=== PATIENT | female | born 1950 | race Caucasian/White ===

== ENCOUNTER → 2017-04-27 | Outpatient (CLI) | payer MEDICARE, OTHER ==
[2016-04-08 11:00] VITALS: BP 153/90
[~2017-04-27] MED LIST: AMLO10TA2 PO; AMLO1CAP2 PO; ASPI-482 PO; ATOR40TA PO; CETI10TA22 PO; CINN500C PO; CLON0.2T PO; CRAN500C5 PO; ESOM40CA PO; FLUT16SP NS; FLUT1DIS3 IH; FURO20TA3 PO; LOSA100T2 PO; METF500T9 PO; METO100T11 PO; PRED20TA PO; VENTOLIN HFA18 GM IH
[2017-04-27 14:55] LABS: ALBUMIN 3.5 g/dL (3.4-5.0); CALCIUM 9.2 mg/dL (8.5-10.1); CREATININE 0.8 mg/dL (0.6-1.0); GFR 71.3; POTASSIUM 4.1 mmol/L (3.5-5.1)
== END | disposition home or self-care (01) ==
LOC: SURGPAT 13:26
PROVIDERS: ATTEND Surgery
DX: Z01.812 Encounter for preprocedural laboratory examination (principal)
CPT/HCPCS: 36415; 80048; 82040

== ENCOUNTER 2017-05-01 05:47 | Inpatient (IN) | payer MEDICARE, OTHER ==
[~2017-05-01] VITALS: Ht 157.5 cm; Wt 108.9 kg
[2017-05-01] VITALS (7 sets, daily range): BP systolic 143–148; BP diastolic 82–94
[~2017-05-01 05:47] MED LIST changes: -CINN500C PO; +CINN500C2 PO
[2017-05-01] MEDS ORDERED: LIDOCAINE 1% 1 ML SYRINGE. ID PRN (07:00)
[2017-05-01] MEDS ORDERED: ONDANSETRON PF 4 MG/2 ML VIAL. IV PRN ×2 (07:00→09:45)
[2017-05-01] MEDS ORDERED: PROCHLORPERAZINE 10 MG/2 ML VIAL. IV PRN ×2 (07:00→08:15)
[2017-05-01] MEDS ORDERED: IV RINGERS,LACTATED 1000ML 1,000 ML IV SCH (07:00)
[2017-05-01] MEDS ORDERED: fentaNYL PF VIAL 100 MCG/2 ML VIAL IV PRN ×3 (07:00→09:45)
[2017-05-01] MEDS ORDERED: BUPIVAC MPF-EPI 0.5%-1:200000 30 ML VIAL. ONE (07:07)
[2017-05-01] MEDS ORDERED: BUPIVACAINE MPF 0.5% 30 ML VIAL. ONE (07:08)
[2017-05-01] MEDS ORDERED: ONDANSETRON PF 4 MG/2 ML VIAL. ONE (07:18)
[2017-05-01] MEDS ORDERED: LIDOCAINE 2% PF Vial for OR 5 ML VIAL. ONE (07:18)
[2017-05-01] MEDS ORDERED: DEXAMETHASONE SOD PHOS 20 MG/5 ML VIAL. ONE (07:18)
[2017-05-01] MEDS ORDERED: PROPOFOL 20 ML IV ONE (07:18)
[2017-05-01] MEDS ORDERED: ROCURONIUM 100 MG/10 ML VIAL. ONE (07:19)
[2017-05-01] MEDS ORDERED: fentaNYL PF VIAL 250 MCG/5 ML VIAL ONE (07:20)
--- NOTE | 2017-05-01 07:36 | PDOC1 ---
History and Physical Date of Admission Date of Admission DATE: 05/01/17 TIME: 07:24 Identification/Chief Complaint Chief Complaint umbilical hernia, incarcerated Problems: Source Source: Chart review, Patient History of Present Illness History of Present Illness Ms Ahmadi is an obese 66 yo diabetic with an incarcerated umbilical hernia. She is brought for repair Past Medical History Cardiovascular: HTN Pulmonary: Other (seasonal allergies) GI: Constipation Hepatobiliary: Other (hypercholesterolemia) Endocrine: Diabetes Past Surgical History Past Surgical History: Cholecystectomy, , Hernia Repair, Hysterectomy Family History Family History: Cancer Social History Smoke: No ALCOHOL: rare Current Medications Current Medications Current Medications Ondansetron HCl (Zofran) 4 mg PRN Q6HRS PRN IV NAUSEA/VOMITING; Start 05/01/17 at 07:00; Stop 05/02/17 at 06:59 Fentanyl Citrate (Fentanyl 2ml Vial) 25 mcg PRN Q5MIN PRN IV MILD PAIN; Start 05/01/17 at 07:00; Stop 05/02/17 at 06:59 Fentanyl Citrate (Fentanyl 2ml Vial) 50 mcg PRN Q5MIN PRN IV MODERATE PAIN; Start 05/01/17 at 07:00; Stop 05/02/17 at 06:59 Ringer's Solution 1,000 ml @ 30 mls/hr Q24H IV Last administered on 05/01/17t 07:00; Start 05/01/17 at 07:00; Stop 05/01/17 at 18:59 Lidocaine HCl 2 ml PRN 1X PRN ID PRIOR TO IV START; Start 05/01/17 at 07:00; Stop 05/02/17 at 06:59 Prochlorperazine Edisylate (Compazine) 5 mg PACU PRN PRN IV NAUSEA, MRX1; Start 05/01/17 at 07:00; Stop 05/02/17 at 06:59 Levofloxacin/ Dextrose 100 ml @ 100 mls/hr 1X PREOP PRN IV PRIOR TO PROCEDURE ; Start 05/01/17 at 06:00; Stop 05/01/17 at 18:00 Bupivacaine HCl/ Epinephrine Bitart (Sensorcain-Mpf Epi 0.5%-1:[id number]) 30 ml STK -MED ONCE .ROUTE ; Start 05/01/17 at 07:07; Stop 05/01/17 at 07:08; Status DC Bupivacaine HCl (Sensorcaine Mpf 0.5%) 30 ml STK-MED ONCE .ROUTE ; Start at 07:08; Stop 05/01/17 at 07:09; Status DC Dexamethasone Sodium Phosphate (Decadron) 20 mg STK-MED ONCE .ROUTE ; Start 05/01 at 07:18; Stop 05/01/17 at 07:19; Status DC Ondansetron HCl (Zofran) 4 mg STK-MED ONCE .ROUTE ; Start 05/01/17 at 07:18; Stop 05/01/17 at 07:19; Status DC Propofol 20 ml @ As Directed STK-MED ONCE IV ; Start 05/01/17 at 07:18; Stop 05/01 at 07:19; Status DC Lidocaine HCl (Lidocaine Pf 2% Vial) 5 ml STK-MED ONCE .ROUTE ; Start 05/01/17 at 07:18; Stop 05/01/17 at 07:19; Status DC Rocuronium [place] (Zemuron) 100 mg STK-MED ONCE .ROUTE ; Start 05/01/17 at 07:19 ; Stop 05/01/17 at 07:20; Status DC Fentanyl Citrate (Fentanyl 5ml Vial) 250 mcg STK-MED ONCE .ROUTE ; Start at 07:20; Stop 05/01/17 at 07:21; Status DC Active Scripts Active Amlodipine Besylate 10 Mg Tablet 10 Mg PO DAILY Reported Cinnamon (Cinnamon Bark) 500 Mg Capsule 500 Mg PO DAILY Cranberry 500 Mg Capsule 500 Mg PO DAILY Cozaar (Losartan Potassium) 100 Mg Tablet 100 Mg PO DAILY Advair 250-50 Diskus (Fluticasone/Salmeterol) 1 Each Disk.w.dev 1 Puff IH BID Clonidine Hcl 0.2 Mg Tablet 0.2 Mg PO DAILY Aspir 81 (Aspirin) 81 Mg Tablet.dr 81 Mg PO Nexium Capsule (Esomeprazole Magnesium) 40 Mg Capsule.dr 40 Mg PO DAILYAC Lipitor (Atorvastatin Calcium) 40 Mg Tablet 40 Mg PO DAILY Metoprolol Succinate ( Xl ) (Metoprolol Succinate) 100 Mg Tab.er.24h 100 Mg PO DAILY Metformin Hcl Er (Metformin Hcl) 500 Mg Tab.er.24h 500 Mg PO DAILYWBKFT Ventolin Hfa Inhaler (Albuterol Sulfate) 18 Gm Hfa.aer.ad 2 Puff IH Q4HRS PRN Fluticasone Propionate Nasal [place] (Fluticasone Propionate) 16 Gm [place].susp 2 [place] NS DAILY Zyrtec (Cetirizine Hcl) 10 Mg Tablet 10 Mg PO Furosemide 20 Mg Tablet 20 Mg PO DAILY PRN Allergies Allergies: Coded Allergies: Sulfa (Sulfonamide Antibiotics) (Verified Allergy, Severe, Anaphylaxis, 04/27/17) Penicillins (Verified Allergy, Intermediate, Hives, 04/27/17) diphenhydramine (Verified Allergy, Intermediate, Palpitations, 04/27/17) codeine (Verified Allergy, Mild, 04/27/17) ROS Respiratory: YES: Wheezing Gastrointestinal: Yes Abdominal Pain Physical Exam General: Alert, Oriented X3, Cooperative, No acute distress HEENT: Atraumatic Lungs: Other (occasional wheeze) Heart: RRR Abdomen: Soft, Other (obese, well healed low midline incisional scar, umbilical fullness that is mildly TTP and not reducible) Skin: No rashes Neuro: Normal speech Vitals Vitals Vital Signs Date Time Temp Pulse Resp B/P (MAP) Pulse Ox O2 Delivery O2 Flow Rate FiO2 05/01/17 06:44 98.4 84 18 178/80 94 Room Air 98.4 Labs Labs Laboratory Tests Test 05/01/17 07:06 Glucose (Fingerstick) 147 mg/dL (70-99) Laboratory Tests Test 05/01/17 07:06 Glucose (Fingerstick) 147 mg/dL (70-99) VTE Prophylaxis Ordered VTE Prophylaxis Devices: Yes VTE Pharmacological Prophylaxi: No Assessment/Plan Assessment/Plan incarcerated umbilical hernia HPT obesity Repair. Discussed risks including but not limited to bleeding, infection, recurrence at her pre op visit. She would like to proceed. BARB PULIDO MD May 01, 2017 07:36
[2017-05-01] MEDS ORDERED: GLYCOPYRROLATE 1 MG/5 ML VIAL. ONE (08:09)
[2017-05-01] MEDS ORDERED: NEOSTIGMINE METHYLSULFATE 5 MG/5 ML SYRINGE. ONE (08:09)
[2017-05-01] MEDS ORDERED: MORPHINE SULFATE 4 MG/ML DISP.SYRIN. IV PRN (08:15)
[2017-05-01] MEDS ORDERED: HYDROmorphone 2 MG/ML VIAL IV PRN (08:15)
[2017-05-01] MEDS ORDERED: MEPERIDINE PF 25 MG/ML VIAL. IV PRN (08:15)
[2017-05-01] MEDS ORDERED: KETOROLAC 60 MG/2 ML INJ FOR OR. ONE (08:40)
[2017-05-01] MEDS: fentaNYL PF VIAL 100 MCG/2 ML VIAL IV PRN ×2 (09:40→09:52)
[2017-05-01] MEDS ORDERED: traMADol 50 MG TABLET PO ONE ×2 (09:45→20:15)
[2017-05-01] MEDS ORDERED: 0.9 % SODIUM CHLORIDE 10 ML DISP.SYRIN. IV PRN (09:45)
[2017-05-01] MEDS ORDERED: FUROSEMIDE 20 MG TABLET PO PRN (09:45)
--- NOTE | 2017-05-01 09:46 | PDOC ---
BRIEF OPERATIVE NOTE Date: May 01, 2017 Pre-Op Diagnosis incarcerated umbilical hernia Post-Op Diagnosis same Procedure Performed repair with mesh, partial omentectomy Surgeon Jose Carlos Anesthesia Type: General Blood Loss 10cc IV Fluid 1000cc Specimens Obtained hernia sack and incarcerated contents (omentum) Findings incarcerated omentum in hernia sack arising just above mesh from previous repair Complications none BARB PULIDO MD May 01, 2017 09:46
[2017-05-01] MEDS ORDERED: ALBUTEROL SULFATE 2.5 MG/3 ML NEBU. NEB PRN (10:30)
[2017-05-01] MEDS ORDERED: SEVOFLURANE 61 TO 120 MINUTES. IH ONE (10:41)
--- NOTE | 2017-05-01 10:48 | OP ---
DATE OF SURGERY: 05/01/2017 PREOPERATIVE DIAGNOSIS: Incarcerated umbilical hernia. POSTOPERATIVE DIAGNOSIS: Incarcerated umbilical hernia. PROCEDURE: Repair with mesh, partial omentectomy. SURGEON: Barb Pulido MD ANESTHESIA: General endotracheal. ESTIMATED BLOOD LOSS: 10 mL. IV FLUID: 1 liter. INDICATIONS: The patient is a 66-year-old, obese female, diabetic with an incarcerated umbilical hernia, brought for repair. OPERATIVE FINDINGS: The hernia was a small defect with a large amount of omentum extruded out of it. The defect arose just superior to a piece of mesh from her previous umbilical hernia repair. DESCRIPTION OF PROCEDURE: The patient was brought to the Operating Suite, given a general endotracheal anesthetic, and the abdomen was prepped and draped in the usual sterile fashion. A vertical midline incision starting just above the umbilicus extending just below it was made through the skin and subcutaneous tissue down to the anterior sheath. The hernia sac was exposed circumferentially and carefully opened. Incarcerated omentum within the sac was serially clamped, divided, and ligated to allow reduction of the remaining omentum back into the abdomen. The hernia sac was excised. A 6 cm x 4 cm ventral [place] with a strap patch was placed intraabdominally after a correct sponge count had been obtained. The mesh was tacked in four quadrants with 0 PDS, taking care to avoid injury to abdominal contents. When a second sponge count was correct, the attenuated fascia was closed over the mesh with a running stitch of 0 Vicryl. Good hemostasis was present. Subcutaneous tissue was approximated with 3-0 Vicryl. Skin was closed with a subcuticular 4-0 Monocryl. Steri-Strips and sterile dressing were applied. Abdominal binder was placed. The patient was awakened from her anesthetic and taken to the Recovery Room in satisfactory condition. BARB PULIDO MD DR: KACIE/mally JOB#: [id number] / [id number]
[2017-05-01] MEDS: ALBUTEROL SULFATE 2.5 MG/3 ML NEBU. NEB SCH ×3 (12:09→19:36)
[2017-05-01 14:12] LABS: ALBUMIN 3.2 g/dL (3.4-5.0); ALBUMIN/GLOBULIN RATIO 0.8 (1.0-1.7); CALCIUM 8.6 mg/dL (8.5-10.1); GFR 55.1; TOTAL BILIRUBIN 0.3 mg/dL (0.2-1.0); TOTAL PROTEIN 7.4 g/dL (6.4-8.2)
--- NOTE | 2017-05-01 15:28 | HP ---
ADMIT DATE: 05/01/2017 INTERNAL MEDICINE CONSULT CHIEF COMPLAINT: Postop umbilical hernia repair, request for medical evaluation and treatment of comorbidities. HISTORY OF PRESENT ILLNESS: The patient is a pleasant middle-aged female, who had an umbilical hernia repair today. We have been requested for postop medical evaluation and treatment of comorbidities. PAST MEDICAL HISTORY: Hypertension, obesity, constipation, C-sections, cholecystectomy, hernia repair, and hysterectomy. ALLERGIES: None. FAMILY HISTORY: Some type of cancer. SOCIAL HISTORY: She does not drink, smoke, or take drugs. MEDICATIONS: Reviewed, please refer to the MRAD. REVIEW OF SYSTEMS: GENERAL: No history of weight change, weakness or fevers. SKIN: No bruising, hair changes or rashes. EYES: No blurred, double or loss of vision. NOSE AND THROAT: No history of nosebleeds, hoarseness or sore throat. HEART: No history of palpitations, chest pain or shortness of breath on exertion. LUNGS: Denies cough, hemoptysis, wheezing or shortness of breath. GASTROINTESTINAL: The patient complains of abdominal pain. GENITOURINARY: No history of frequency, urgency, hesitancy or nocturia. NEUROLOGIC: Denies history of numbness, tingling, tremor or weakness. PSYCHIATRIC: No history of panic, anxiety or depression. ENDOCRINE: No history of heat or cold intolerance, polyuria or polydipsia. EXTREMITIES: Denies muscle weakness, joint pain, pain on walking or stiffness. PHYSICAL EXAMINATION: VITAL SIGNS: Temperature afebrile, pulse 68, respiration 18, blood pressure 144/90. GENERAL: She is alert, cooperative, blood drawn. HEART: Normal S1, S2. LUNGS: Clear. ABDOMEN: Soft, obese. There is an abdominal binder in place. ENDOCRINE: No thyromegaly. LYMPHATICS: No cervical nodes. HEMATOPOIETIC: No bruising. LABORATORY DATA: Pending, I ordered some . ASSESSMENT AND PLAN: Postop umbilical hernia repair. The patient clinically is doing well for now. I agreed with resuming her home meds. I am going to recheck her labs. PT, OT, wound care. Thank you very much for allowing us to participate in the care of this nice lady. JIAN BHARDWAJ DO DR: JANNETH/mally JOB#: [id number] / [id number]
[2017-05-01] MEDS: POTASSIUM CL 20MEQ-0.45% NACL 1,000 ML IV SCH ×2 (18:12→22:00)
[2017-05-01] MEDS: BUDESONIDE 0.5 MG/2 ML NEBU. NEB SCH (19:36)
[2017-05-01] MEDS: ATORVASTATIN CALCIUM 40 MG TABLET. PO SCH (20:05)
[2017-05-01] MEDS: DOCUSATE SODIUM 100 MG CAPSULE. PO SCH (20:05)
[2017-05-01] MEDS: ENOXAPARIN 40 MG/0.4 ML SYRINGE. SQ SCH (20:06)
[2017-05-01] MEDS ORDERED: NON FORMULARY ITEM (Fluticasone/Salmeterol (Advair 250-50 Diskus) 1 PUFF) IH SCH (21:00)
[2017-05-02 03:00] VITALS: BP 159/104
[2017-05-02] MEDS: POTASSIUM CL 20MEQ-0.45% NACL 1,000 ML IV SCH ×2 (03:46→14:17)
[2017-05-02 05:25] LABS: BASO % 0 % (0-3); EOS % 0 % (0-3); HEMATOCRIT 37.7 % (36.0-47.0); HEMOGLOBIN 11.7 g/dL (12.0-15.5); LYMPH # 1.1 x10^3/uL (1.0-4.8); LYMPH % 9 % (24-48); MEAN CORPUSCULAR HEMOGLOBIN 26 pg (25-35); MEAN CORPUSCULAR HGB CONC 31 g/dL (31-37); MEAN CORPUSCULAR VOLUME 82 fL (79-100); MONO % 8 % (0-9); NEUT % 83 % (31-73); PLATELET COUNT 279 x10^3/uL (140-400); RED BLOOD COUNT 4.58 x10^6/uL (3.50-5.40); RED CELL DISTRIBUTION WIDTH 18.3 % (11.5-14.5); WHITE BLOOD COUNT 11.7 x10^3/uL (4.0-11.0)
[2017-05-02 07:00] VITALS: BP 172/90
[2017-05-02] MEDS: ALBUTEROL SULFATE 2.5 MG/3 ML NEBU. NEB SCH ×4 (07:37→19:42)
[2017-05-02] MEDS: BUDESONIDE 0.5 MG/2 ML NEBU. NEB SCH ×2 (07:38→19:42)
[2017-05-02] MEDS: ASPIRIN ENTERIC COATED 81 MG TABLET.DR. PO SCH (08:50)
[2017-05-02] MEDS: METOPROLOL SUCC 24HR ER 100 MG TAB.ER.24H. PO SCH (08:50)
[2017-05-02] MEDS: metFORMIN XR 500 MG TAB.ER.24H PO SCH (08:50)
[2017-05-02] MEDS: DOCUSATE SODIUM 100 MG CAPSULE. PO SCH ×2 (08:50→21:22)
[2017-05-02] MEDS: CETIRIZINE HCL 10 MG TABLET. PO SCH (08:50)
[2017-05-02] MEDS: cloNIDine HCL 0.2 MG TABLET PO SCH (08:50)
[2017-05-02] MEDS: PANTOPRAZOLE 40 MG TABLET.DR. PO SCH (08:51)
[2017-05-02] MEDS: amLODIPine BESYLATE 10 MG TABLET PO SCH (08:51)
[2017-05-02] MEDS: ENOXAPARIN 40 MG/0.4 ML SYRINGE. SQ SCH ×2 (08:52→21:23)
[2017-05-02] MEDS: FLUTICASONE 50MCG/NASAL SPRAY 16GM BOTTLE. NS SCH (08:54)
--- NOTE | 2017-05-02 10:24 | PDOC ---
DANIELLE ANTUNEZ FREEZER ASSISTANT 05/02/17 1023: SURGICAL PROGRESS NOTE Subjective tolerating clears, however can not have much--she reports not tolerant of artificial sugars no n/v urinating frequently pain is better when up in chair Vital Signs Vital Signs Date Time Temp Pulse Resp B/P (MAP) Pulse Ox O2 Delivery O2 Flow Rate FiO2 05/02/17 08:51 89 172/90 05/02/17 07:43 95 Nasal Cannula 2.0 05/02/17 07:00 97.9 20 97.9 I&O Intake and Output 05/02/17 07:00 Intake Total 3250 ml Output Total 310 ml Balance 2940 ml Intake Oral 950 ml IV Total 1300 ml Other 1000 ml Output Urine Total 300 ml Estimated Blood Loss 10 ml # Voids 5 General: Alert, Oriented X3, Cooperative, No acute distress Abdomen: Soft, Other (dressing dry) Labs Laboratory Tests Test 05/01/17 07:06 05/01/17 09:21 05/01/17 11:45 05/01/17 13:50 Glucose (Fingerstick) 147 mg/dL (70-99) 152 mg/dL (70-99) 157 mg/dL (70-99) Sodium Level 142 mmol/L (136-145) Potassium Level 4.0 mmol/L (3.5-5.1) Chloride Level 105 mmol/L (98-107) Carbon Dioxide Level 24 mmol/L (21-32) Anion Gap 13 (6-14) Blood Urea Nitrogen 15 mg/dL (7-20) Creatinine 1.0 mg/dL (0.6-1.0) Estimated GFR (Cockcroft-Gault) 55.1 BUN/Creatinine Ratio 15 (6-20) Glucose Level 204 mg/dL (70-99) Calcium Level 8.6 mg/dL (8.5-10.1) Total Bilirubin 0.3 mg/dL (0.2-1.0) Aspartate Amino Transf (AST/SGOT) 25 U/L (15-37) Alanine Aminotransferase (ALT/SGPT) 37 U/L (14-59) Alkaline Phosphatase 140 U/L (46-116) Total Protein 7.4 g/dL (6.4-8.2) Albumin 3.2 g/dL (3.4-5.0) Albumin/Globulin Ratio 0.8 (1.0-1.7) Test 05/01/17 16:42 05/01/17 21:12 05/02/17 04:15 Glucose (Fingerstick) 191 mg/dL (70-99) 183 mg/dL (70-99) White Blood Count 11.7 x10^3/uL (4.0-11.0) Red Blood Count 4.58 x10^6/uL (3.50-5.40) Hemoglobin 11.7 g/dL (12.0-15.5) Hematocrit 37.7 % (36.0-47.0) Mean Corpuscular Volume 82 fL (79-100) Mean Corpuscular Hemoglobin 26 pg (25-35) Mean Corpuscular Hemoglobin Concent 31 g/dL (31-37) Red Cell Distribution Width 18.3 % (11.5-14.5) Platelet Count 279 x10^3/uL (140-400) Neutrophils (%) (Auto) 83 % (31-73) Lymphocytes (%) (Auto) 9 % (24-48) Monocytes (%) (Auto) 8 % (0-9) Eosinophils (%) (Auto) 0 % (0-3) Basophils (%) (Auto) 0 % (0-3) Neutrophils # (Auto) 9.7 x10^3uL (1.8-7.7) Lymphocytes # (Auto) 1.1 x10^3/uL (1.0-4.8) Monocytes # (Auto) 0.9 x10^3/uL (0.0-1.1) Eosinophils # (Auto) 0.0 x10^3/uL (0.0-0.7) Basophils # (Auto) 0.0 x10^3/uL (0.0-0.2) Laboratory Tests Test 05/01/17 11:45 05/01/17 13:50 05/01/17 16:42 05/01/17 21:12 Glucose (Fingerstick) 157 mg/dL (70-99) 191 mg/dL (70-99) 183 mg/dL (70-99) Sodium Level 142 mmol/L (136-145) Potassium Level 4.0 mmol/L (3.5-5.1) Chloride Level 105 mmol/L (98-107) Carbon Dioxide Level 24 mmol/L (21-32) Anion Gap 13 (6-14) Blood Urea Nitrogen 15 mg/dL (7-20) Creatinine 1.0 mg/dL (0.6-1.0) Estimated GFR (Cockcroft-Gault) 55.1 BUN/Creatinine Ratio 15 (6-20) Glucose Level 204 mg/dL (70-99) Calcium Level 8.6 mg/dL (8.5-10.1) Total Bilirubin 0.3 mg/dL (0.2-1.0) Aspartate Amino Transf (AST/SGOT) 25 U/L (15-37) Alanine Aminotransferase (ALT/SGPT) 37 U/L (14-59) Alkaline Phosphatase 140 U/L (46-116) Total Protein 7.4 g/dL (6.4-8.2) Albumin 3.2 g/dL (3.4-5.0) Albumin/Globulin Ratio 0.8 (1.0-1.7) Test 05/02/17 04:15 White Blood Count 11.7 x10^3/uL (4.0-11.0) Red Blood Count 4.58 x10^6/uL (3.50-5.40) Hemoglobin 11.7 g/dL (12.0-15.5) Hematocrit 37.7 % (36.0-47.0) Mean Corpuscular Volume 82 fL (79-100) Mean Corpuscular Hemoglobin 26 pg (25-35) Mean Corpuscular Hemoglobin Concent 31 g/dL (31-37) Red Cell Distribution Width 18.3 % (11.5-14.5) Platelet Count 279 x10^3/uL (140-400) Neutrophils (%) (Auto) 83 % (31-73) Lymphocytes (%) (Auto) 9 % (24-48) Monocytes (%) (Auto) 8 % (0-9) Eosinophils (%) (Auto) 0 % (0-3) Basophils (%) (Auto) 0 % (0-3) Neutrophils # (Auto) 9.7 x10^3uL (1.8-7.7) Lymphocytes # (Auto) 1.1 x10^3/uL (1.0-4.8) Monocytes # (Auto) 0.9 x10^3/uL (0.0-1.1) Eosinophils # (Auto) 0.0 x10^3/uL (0.0-0.7) Basophils # (Auto) 0.0 x10^3/uL (0.0-0.2) Problem List s/p umbilical repair, partial omentectomy advance diet continue increasing activity decrease IVF Problems: BARB PULIDO MD 05/02/17 1104: SURGICAL PROGRESS NOTE Assessment/Plan pt seen and examined up to chair agree with above Problems: DANIELLE ANTUNEZ APRN May 02, 2017 10:23 BARB PULIDO MD May 02, 2017 11:04
[2017-05-02 10:53] VITALS: BP 133/87
[2017-05-02] MEDS: LOSARTAN POTASSIUM 50 MG TABLET. PO SCH (14:18)
[2017-05-02 15:00] VITALS: BP 133/77
--- NOTE | 2017-05-02 16:31 | PDOC ---
PROGRESS NOTES Chief Complaint Chief Complaint Post op Umbilical Hernia repair with h/o: Hypertension, obesity, constipation, C-sections, cholecystectomy, prior hernia repair, and hysterectomy. History of Present Illness History of Present Illness In bed. Nino RN Reviewed labs and notes Pt seems to be in pain Poor appetite, on CLD Vitals Vitals Vital Signs Date Time Temp Pulse Resp B/P (MAP) Pulse Ox O2 Delivery O2 Flow Rate FiO2 05/02/17 15:32 Room Air 05/02/17 15:00 97.8 86 18 133/77 (95) 91 97.8 05/02/17 11:42 2.0 Physical Exam General: Alert, Oriented X3, Cooperative, No acute distress Heart: Regular rate, Normal S1 Lungs: Clear Abdomen: Soft, Other (dressing dry) Skin: No rashes Labs LABS Laboratory Tests Test 05/01/17 16:42 05/01/17 21:12 05/02/17 04:15 05/02/17 11:22 Glucose (Fingerstick) 191 mg/dL (70-99) 183 mg/dL (70-99) 128 mg/dL (70-99) White Blood Count 11.7 x10^3/uL (4.0-11.0) Red Blood Count 4.58 x10^6/uL (3.50-5.40) Hemoglobin 11.7 g/dL (12.0-15.5) Hematocrit 37.7 % (36.0-47.0) Mean Corpuscular Volume 82 fL (79-100) Mean Corpuscular Hemoglobin 26 pg (25-35) Mean Corpuscular Hemoglobin Concent 31 g/dL (31-37) Red Cell Distribution Width 18.3 % (11.5-14.5) Platelet Count 279 x10^3/uL (140-400) Neutrophils (%) (Auto) 83 % (31-73) Lymphocytes (%) (Auto) 9 % (24-48) Monocytes (%) (Auto) 8 % (0-9) Eosinophils (%) (Auto) 0 % (0-3) Basophils (%) (Auto) 0 % (0-3) Neutrophils # (Auto) 9.7 x10^3uL (1.8-7.7) Lymphocytes # (Auto) 1.1 x10^3/uL (1.0-4.8) Monocytes # (Auto) 0.9 x10^3/uL (0.0-1.1) Eosinophils # (Auto) 0.0 x10^3/uL (0.0-0.7) Basophils # (Auto) 0.0 x10^3/uL (0.0-0.2) Review of Systems Review of Systems co pain co nausea Assessment and Plan Assessmemt and Plan Post op Umbilical Hernia repair with h/o: Hypertension, obesity, constipation, C-sections, cholecystectomy, prior hernia repair, and hysterectomy. Plan IV fluids Zofran Narcotics Recheck labs Wound care PTOt Home meds Will Follow, Thanks. Problems: Comment Review of Relevant I have reviewed the following items petra (where applicable) has been applied. Labs Laboratory Tests Test 05/01/17 07:06 05/01/17 09:21 05/01/17 11:45 05/01/17 13:50 Glucose (Fingerstick) 147 mg/dL (70-99) 152 mg/dL (70-99) 157 mg/dL (70-99) Sodium Level 142 mmol/L (136-145) Potassium Level 4.0 mmol/L (3.5-5.1) Chloride Level 105 mmol/L (98-107) Carbon Dioxide Level 24 mmol/L (21-32) Anion Gap 13 (6-14) Blood Urea Nitrogen 15 mg/dL (7-20) Creatinine 1.0 mg/dL (0.6-1.0) Estimated GFR (Cockcroft-Gault) 55.1 BUN/Creatinine Ratio 15 (6-20) Glucose Level 204 mg/dL (70-99) Calcium Level 8.6 mg/dL (8.5-10.1) Total Bilirubin 0.3 mg/dL (0.2-1.0) Aspartate Amino Transf (AST/SGOT) 25 U/L (15-37) Alanine Aminotransferase (ALT/SGPT) 37 U/L (14-59) Alkaline Phosphatase 140 U/L (46-116) Total Protein 7.4 g/dL (6.4-8.2) Albumin 3.2 g/dL (3.4-5.0) Albumin/Globulin Ratio 0.8 (1.0-1.7) Test 05/01/17 16:42 05/01/17 21:12 05/02/17 04:15 05/02/17 11:22 Glucose (Fingerstick) 191 mg/dL (70-99) 183 mg/dL (70-99) 128 mg/dL (70-99) White Blood Count 11.7 x10^3/uL (4.0-11.0) Red Blood Count 4.58 x10^6/uL (3.50-5.40) Hemoglobin 11.7 g/dL (12.0-15.5) Hematocrit 37.7 % (36.0-47.0) Mean Corpuscular Volume 82 fL (79-100) Mean Corpuscular Hemoglobin 26 pg (25-35) Mean Corpuscular Hemoglobin Concent 31 g/dL (31-37) Red Cell Distribution Width 18.3 % (11.5-14.5) Platelet Count 279 x10^3/uL (140-400) Neutrophils (%) (Auto) 83 % (31-73) Lymphocytes (%) (Auto) 9 % (24-48) Monocytes (%) (Auto) 8 % (0-9) Eosinophils (%) (Auto) 0 % (0-3) Basophils (%) (Auto) 0 % (0-3) Neutrophils # (Auto) 9.7 x10^3uL (1.8-7.7) Lymphocytes # (Auto) 1.1 x10^3/uL (1.0-4.8) Monocytes # (Auto) 0.9 x10^3/uL (0.0-1.1) Eosinophils # (Auto) 0.0 x10^3/uL (0.0-0.7) Basophils # (Auto) 0.0 x10^3/uL (0.0-0.2) Laboratory Tests Test 05/01/17 16:42 05/01/17 21:12 05/02/17 04:15 05/02/17 11:22 Glucose (Fingerstick) 191 mg/dL (70-99) 183 mg/dL (70-99) 128 mg/dL (70-99) White Blood Count 11.7 x10^3/uL (4.0-11.0) Red Blood Count 4.58 x10^6/uL (3.50-5.40) Hemoglobin 11.7 g/dL (12.0-15.5) Hematocrit 37.7 % (36.0-47.0) Mean Corpuscular Volume 82 fL (79-100) Mean Corpuscular Hemoglobin 26 pg (25-35) Mean Corpuscular Hemoglobin Concent 31 g/dL (31-37) Red Cell Distribution Width 18.3 % (11.5-14.5) Platelet Count 279 x10^3/uL (140-400) Neutrophils (%) (Auto) 83 % (31-73) Lymphocytes (%) (Auto) 9 % (24-48) Monocytes (%) (Auto) 8 % (0-9) Eosinophils (%) (Auto) 0 % (0-3) Basophils (%) (Auto) 0 % (0-3) Neutrophils # (Auto) 9.7 x10^3uL (1.8-7.7) Lymphocytes # (Auto) 1.1 x10^3/uL (1.0-4.8) Monocytes # (Auto) 0.9 x10^3/uL (0.0-1.1) Eosinophils # (Auto) 0.0 x10^3/uL (0.0-0.7) Basophils # (Auto) 0.0 x10^3/uL (0.0-0.2) Medications Current Medications Ondansetron HCl (Zofran) 4 mg PRN Q6HRS PRN IV NAUSEA/VOMITING; Start 05/01/17 at 07:00; Stop 05/02/17 at 06:59; Status DC Fentanyl Citrate (Fentanyl 2ml Vial) 25 mcg PRN Q5MIN PRN IV MILD PAIN Last administered on 05/01/17 09:52; Start 05/01/17 at 07:00; Stop 05/02/17 at 06:59; Status DC Fentanyl Citrate (Fentanyl 2ml Vial) 50 mcg PRN Q5MIN PRN IV MODERATE PAIN; Start 05/01/17 at 07:00; Stop 05/02/17 at 06:59; Status DC Ringer's Solution 1,000 ml @ 30 mls/hr Q24H IV Last administered on 05/01/17 07:00; Start 05/01/17 at 07:00; Stop 05/01/17 at 18:59; Status DC Lidocaine HCl 2 ml PRN 1X PRN ID PRIOR TO IV START; Start 05/01/17 at 07:00; Stop 05/02/17 at 06:59; Status DC Prochlorperazine Edisylate (Compazine) 5 mg PACU PRN PRN IV NAUSEA, MRX1; Start 05/01/17 at 07:00; Stop 05/02/17 at 06:59; Status DC Levofloxacin/ Dextrose 100 ml @ 100 mls/hr 1X PREOP PRN IV PRIOR TO PROCEDURE ; Start 05/01/17 at 06:00; Stop 05/01/17 at 18:00; Status DC Bupivacaine HCl/ Epinephrine Bitart (Sensorcain-Mpf Epi 0.5%-1:[id number]) 30 ml STK -MED ONCE .ROUTE ; Start 05/01/17 at 07:07; Stop 05/01/17 at 07:08; Status DC Bupivacaine HCl (Sensorcaine Mpf 0.5%) 30 ml STK-MED ONCE .ROUTE Last administered on 05/01/17t 08:01; Start 05/01/17 at 07:08; Stop 05/01/17 at 07:09; Status DC Dexamethasone Sodium Phosphate (Decadron) 20 mg STK-MED ONCE .ROUTE ; Start 05/01 at 07:18; Stop 05/01/17 at 07:19; Status DC Ondansetron HCl (Zofran) 4 mg STK-MED ONCE .ROUTE ; Start 05/01/17 at 07:18; Stop 05/01/17 at 07:19; Status DC Propofol 20 ml @ As Directed STK-MED ONCE IV ; Start 05/01/17 at 07:18; Stop 05/01 at 07:19; Status DC Lidocaine HCl (Lidocaine Pf 2% Vial) 5 ml STK-MED ONCE .ROUTE ; Start 05/01/17 at 07:18; Stop 05/01/17 at 07:19; Status DC Rocuronium Bertrand (Zemuron) 100 mg STK-MED ONCE .ROUTE ; Start 05/01/17 at 07:19 ; Stop 05/01/17 at 07:20; Status DC Fentanyl Citrate (Fentanyl 5ml Vial) 250 mcg STK-MED ONCE .ROUTE ; Start at 07:20; Stop 05/01/17 at 07:21; Status DC Glycopyrrolate (Robinul) 1 mg STK-MED ONCE .ROUTE ; Start 05/01/17 at 08:09; Stop 05/01/17 at 08:10; Status DC Neostigmine Methylsulfate 5 mg STK-MED ONCE .ROUTE ; Start 05/01/17 at 08:09; Stop 05/01/17 at 08:10; Status DC Fentanyl Citrate (Fentanyl 2ml Vial) 50 mcg PRN Q5MIN PRN IV Acute Pain; Start 05/01/17 at 08:15; Stop 05/02/17 at 08:14; Status DC Morphine Sulfate 4 mg PRN Q10MIN PRN IV Moderate Pain; Start 05/01/17 at 08:15; Stop 05/02/17 at 08:14; Status UNV Hydromorphone HCl (Dilaudid) 0.4 mg PRN Q10MIN PRN IV Moderate to severe pain; Start 05/01/17 at 08:15; Stop 05/02/17 at 08:14; Status UNV Meperidine HCl (Demerol) 12.5 mg PRN Q5MIN PRN IV SHIVERING; Start 05/01/17 at 08:15; Stop 05/02/17 at 08:14; Status DC Prochlorperazine Edisylate (Compazine) 5 mg PRN Q6HRS PRN IV Nausea/Vomiting, 1st Choice; Start 05/01/17 at 08:15; Stop 05/02/17 at 08:14; Status DC Ketorolac Tromethamine (Toradol For Or Only) 60 mg STK-MED ONCE .ROUTE ; Start 05/01/17 at 08:40; Stop 05/01/17 at 08:41; Status DC Enoxaparin Sodium (Lovenox 40mg Syringe) 40 mg BID SQ Last administered on 08:52; Start 05/01/17 at 21:00 Sodium Chloride (Normal Saline Flush) 3 ml QSHIFT PRN IV AFTER MEDS AND BLOOD DRAWS; Start 05/01/17 at 09:45 Potassium Chloride/Sodium Chloride 1,000 ml @ 50 mls/hr Q20H IV Last administered on 05/02/17 14:17; Start 05/01/17 at 12:00 Docusate Sodium (Colace) 100 mg BID PO Last administered on 05/02/17 08:50; Start 05/01/17 at 21:00 Ondansetron HCl (Zofran) 4 mg PRN Q6HRS PRN IV NAUESA, 1ST CHOICE; Start at 09:45 Amlodipine Besylate (Norvasc) 10 mg DAILY PO Last administered on 05/02/17 08: 51; Start 05/02/17 at 09:00 Aspirin (Ecotrin) 81 mg DAILY PO Last administered on 05/02/17 08:50; Start 05/02/17 at 09:00 Atorvastatin Calcium (Lipitor) 40 mg QHS PO Last administered on 05/01/17 20:05 ; Start 05/01/17 at 21:00 Cetirizine HCl (ZyrTEC) 10 mg DAILY PO Last administered on 05/02/17 08:50; Start 05/02/17 at 09:00 Clonidine HCl (Catapres) 0.2 mg DAILY PO Last administered on 05/02/17 08:50; Start 05/02/17 at 09:00 Fluticasone Propionate (Flonase) 2 spray DAILY NS Last administered on 08:54; Start 05/02/17 at 09:00 Furosemide (Lasix) 20 mg DAILY PRN PO SEE COMMENTS; Start 05/01/17 at 09:45 Metformin HCl (Glucophage Xr) 500 mg DAILYWBKFT PO Last administered on 08:50; Start 05/02/17 at 08:00 Metoprolol Succinate (Toprol Xl) 100 mg DAILY PO Last administered on 05/02/17 08:50; Start 05/02/17 at 09:00 Albuterol Sulfate (Ventolin Neb Soln) 2.5 mg PRN Q4HRS PRN NEB SHORTNESS OF BREATH; Start 05/01/17 at 10:30 Pantoprazole Sodium (Protonix) 40 mg DAILYAC PO Last administered on 05/02/17 08:51; Start 05/02/17 at 07:30 Non-Formulary Medication 1 puff BID IH ; Start 05/01/17 at 21:00; Status UNV Losartan Potassium (Cozaar) 100 mg DAILY PO Last administered on 05/02/17 14:18 ; Start 05/02/17 at 09:00 Tramadol HCl (Ultram) 50 mg 1X ONCE PO ; Start 05/01/17 at 09:45; Stop 05/01/17 at 09:46; Status Cancel Fentanyl Citrate (Fentanyl 2ml Vial) 50 mcg PRN Q2HR PRN IV PAIN; Start at 09:45 Budesonide (Pulmicort) 0.5 mg RTBID NEB Last administered on 05/02/17 07:38; Start 05/01/17 at 20:00 Albuterol Sulfate (Ventolin Neb Soln) 2.5 mg RTQID NEB Last administered on 05/02 15:30; Start 05/01/17 at 12:00 Sevoflurane (Ultane) 60 ml STK-MED ONCE IH ; Start 05/01/17 at 10:41; Stop at 10:42; Status DC Tramadol HCl (Ultram) 50 mg 1X ONCE PO Last administered on 05/01/17 21:33; Start 05/01/17 at 20:15; Stop 05/01/17 at 20:16; Status DC Active Scripts Active Amlodipine Besylate 10 Mg Tablet 10 Mg PO DAILY Reported Cinnamon (Cinnamon Bark) 500 Mg Capsule 500 Mg PO DAILY Cranberry 500 Mg Capsule 500 Mg PO DAILY Cozaar (Losartan Potassium) 100 Mg Tablet 100 Mg PO DAILY Advair 250-50 Diskus (Fluticasone/Salmeterol) 1 Each Disk.w.dev 1 Puff IH BID Clonidine Hcl 0.2 Mg Tablet 0.2 Mg PO DAILY Aspir 81 (Aspirin) 81 Mg Tablet.dr 81 Mg PO Nexium Capsule (Esomeprazole Magnesium) 40 Mg Capsule.dr 40 Mg PO DAILYAC Lipitor (Atorvastatin Calcium) 40 Mg Tablet 40 Mg PO DAILY Metoprolol Succinate ( Xl ) (Metoprolol Succinate) 100 Mg Tab.er.24h 100 Mg PO DAILY Metformin Hcl Er (Metformin Hcl) 500 Mg Tab.er.24h 500 Mg PO DAILYWBKFT Ventolin Hfa Inhaler (Albuterol Sulfate) 18 Gm Hfa.aer.ad 2 Puff IH Q4HRS PRN Fluticasone Propionate Nasal [place] (Fluticasone Propionate) 16 Gm [place].susp 2 [place] NS DAILY Zyrtec (Cetirizine Hcl) 10 Mg Tablet 10 Mg PO Furosemide 20 Mg Tablet 20 Mg PO DAILY PRN Vitals/I & O Vital Sign - Last 24 Hours 05/01/17 05/01/17 05/01/17 05/01/17 19:00 19:38 20:00 21:33 Temp 98.1 98.1 Pulse 99 Resp 20 18 B/P (MAP) 147/87 (107) Pulse Ox 94 94 O2 Delivery Nasal Cannula Nasal Cannula Room Air Room Air O2 Flow Rate 2.0 2.0 05/01/17 05/01/17 05/02/17 05/02/17 22:50 23:00 03:00 07:00 Temp 97.8 97.8 97.9 97.8 97.8 97.9 Pulse 98 88 89 Resp 20 20 20 20 B/P (MAP) 148/94 (112) 159/104 (122) 172/90 (117) Pulse Ox 97 96 96 O2 Delivery Room Air Nasal Cannula Nasal Cannula Nasal Cannula O2 Flow Rate 2.0 2.0 2.0 05/02/17 05/02/17 05/02/17 05/02/17 07:40 07:43 08:50 08:50 Pulse 89 89 B/P (MAP) 172/90 172/90 Pulse Ox 95 95 O2 Delivery Nasal Cannula Nasal Cannula O2 Flow Rate 2.0 2.0 05/02/17 05/02/17 05/02/17 05/02/17 08:51 10:53 11:42 14:18 Temp 94.6 94.6 Pulse 89 79 Resp 20 B/P (MAP) 172/90 133/87 (102) 170/90 Pulse Ox 94 O2 Delivery Nasal Cannula Nasal Cannula O2 Flow Rate 2.0 2.0 05/02/17 05/02/17 15:00 15:32 Temp 97.8 97.8 Pulse 86 Resp 18 B/P (MAP) 133/77 (95) Pulse Ox 91 O2 Delivery Room Air Room Air Intake and Output 05/01/17 05/01/17 05/02/17 15:00 23:00 07:00 Intake Total 1300 ml 650 ml 1300 ml Output Total 10 ml 300 ml Balance 1290 ml 650 ml 1000 ml JIAN BHARDWAJ III DO May 02, 2017 16:31
[2017-05-02 19:00] VITALS: BP 143/83
[2017-05-02] MEDS: ATORVASTATIN CALCIUM 40 MG TABLET. PO SCH (21:22)
[2017-05-02 23:00] VITALS: BP 164/99
[2017-05-03 05:53] LABS: BASO % 0 % (0-3); EOS % 2 % (0-3); HEMATOCRIT 38.3 % (36.0-47.0); HEMOGLOBIN 12.3 g/dL (12.0-15.5); LYMPH # 1.2 x10^3/uL (1.0-4.8); LYMPH % 13 % (24-48); MEAN CORPUSCULAR HEMOGLOBIN 26 pg (25-35); MEAN CORPUSCULAR HGB CONC 32 g/dL (31-37); MEAN CORPUSCULAR VOLUME 82 fL (79-100); MONO % 8 % (0-9); NEUT % 77 % (31-73); PLATELET COUNT 293 x10^3/uL (140-400); RED BLOOD COUNT 4.69 x10^6/uL (3.50-5.40); RED CELL DISTRIBUTION WIDTH 18.2 % (11.5-14.5); WHITE BLOOD COUNT 9.1 x10^3/uL (4.0-11.0)
[2017-05-03 07:00] VITALS: BP 156/85
[2017-05-03] MEDS: ALBUTEROL SULFATE 2.5 MG/3 ML NEBU. NEB SCH ×3 (07:44→15:29)
[2017-05-03] MEDS: BUDESONIDE 0.5 MG/2 ML NEBU. NEB SCH (07:45)
[2017-05-03] MEDS: DOCUSATE SODIUM 100 MG CAPSULE. PO SCH (09:00)
[2017-05-03] MEDS: ENOXAPARIN 40 MG/0.4 ML SYRINGE. SQ SCH (09:01)
[2017-05-03] MEDS: metFORMIN XR 500 MG TAB.ER.24H PO SCH (09:01)
[2017-05-03] MEDS: LOSARTAN POTASSIUM 50 MG TABLET. PO SCH (09:02)
[2017-05-03] MEDS: METOPROLOL SUCC 24HR ER 100 MG TAB.ER.24H. PO SCH (09:02)
[2017-05-03] MEDS: ASPIRIN ENTERIC COATED 81 MG TABLET.DR. PO SCH (09:03)
[2017-05-03] MEDS: CETIRIZINE HCL 10 MG TABLET. PO SCH (09:03)
[2017-05-03] MEDS: cloNIDine HCL 0.2 MG TABLET PO SCH (09:03)
[2017-05-03] MEDS: FLUTICASONE 50MCG/NASAL SPRAY 16GM BOTTLE. NS SCH (09:03)
[2017-05-03] MEDS: amLODIPine BESYLATE 10 MG TABLET PO SCH (09:03)
[2017-05-03] MEDS: PANTOPRAZOLE 40 MG TABLET.DR. PO SCH (09:03)
--- NOTE | 2017-05-03 10:15 | PATHOLOGY ---
PATHOLOGY REPORT * * * * * * * * FINAL DIAGNOSIS: Fibroadipose tissue with "incarcerated omentum hernia sac incarcerated contents", herniorrhaphy: - Recent hemorrhage consistent with incarcerated hernia. REPORT ELECTRONICALLY SIGNED BY: Wayne Charles M.D. DATE/TIME: 05/03/2017 10:15 * * * * * * * * GROSS PATHOLOGY: The specimen is received in formalin labeled "[address], incarcerated omentum, hernia sac, incarcerated contents". Received is a large amount of yellow-olivas omentum measuring 18.8 x 9.9 x 4.5 cm in greatest dimensions admixed with multiple segments of fibromembranous tissue with attached fibroadipose tissue measuring 7.5 x 4.8 x 2.5 cm in aggregate dimensions. Sectioning through the omentum reveals yellow-olivas, lobulated cut surfaces with no grossly appreciable nodules or lesions. The specimen is submitted representatively in cassette A1. (CAA; 05/02/2017) INITIAL CPT CODE(S): A; 70853 Professional services performed [place] [address] Technical services performed by [facility] at [address] [place] [address] [address]. SPECIMEN(S) RECEIVED: A.Incarcerated omentum/hernia sac with incarcerated contents CLINICAL HISTORY: Umbilical hernia PATIENT: LISA ST /AGE: 1 1950 (Age: 66) PATIENT #: [id number] ALT CASE #: SPECIMEN COLLECTION DATE: 05/01/2017 SPECIMEN RECEIVED DATE: 05/01/2017 [facility] - [address] [place] [address] - PHONE: [phone] * * * END OF REPORT * * *
[2017-05-03 11:09] VITALS: BP 134/76
--- NOTE | 2017-05-03 14:14 | DISCH ---
DISCHARGE INSTRUCTIONS Condition on Discharge Condition on Discharge: Stable Activity After Discharge Activity Instructions for Disc: Activity as tolerated, Avoid exertion Lifting Instructions after Dis: No heavy lifting Driving Instructions after Dis: Do not drive (3-4 days) Diet after Discharge Diet after Discharge: Regular Wound Incision Care Other wound/incision instructi: reece estrada Follow-Up Follow up with: Jose Carlos 05/08 BARB PULIDO MD May 03, 2017 14:14
--- NOTE | 2017-05-03 14:18 | PDOC3 ---
Discharge Summary* Date of Admission: May 01, 2017 Date of Discharge: May 03, 2017 Admitting Diagnosis ventral incisional hernia repair Final Diagnosis same obesity reactive airway disease Procedures repair with mesh Brief Hospital Course Ms. Ahmadi is a 66 old obese female who presented with pain and fullness above her umbilicus. She was brought for repair. She did well post op and went home on her second POD Disposition/Orders: D/C to Home CONDITION AT DISCHARGE: Improved, Stable Diet: Regular Scheduled Amlodipine Besylate (Amlodipine Besylate), 10 MG PO DAILY Atorvastatin Calcium (Lipitor), 40 MG PO DAILY, (Reported) Cinnamon Bark (Cinnamon), 500 MG PO DAILY, (Reported) Clonidine Hcl (Clonidine Hcl), 0.2 MG PO DAILY, (Reported) Cranberry (Cranberry), 500 MG PO DAILY, (Reported) Esomeprazole Magnesium (Nexium Capsule), 40 MG PO DAILYAC, (Reported) Fluticasone Propionate (Fluticasone Propionate Nasal [place]), 2 SPRAY NS DAILY, ( Reported) Fluticasone/Salmeterol (Advair 250-50 Diskus), 1 PUFF IH BID, (Reported) Losartan Potassium (Cozaar), 100 MG PO DAILY, (Reported) Metformin Hcl (Metformin Hcl Er), 500 MG PO DAILYWBKFT, (Reported) Metoprolol Succinate (Metoprolol Succinate ( Xl )), 100 MG PO DAILY, (Reported) Scheduled PRN Albuterol Sulfate (Ventolin Hfa Inhaler), 2 PUFF IH Q4HRS PRN for SOA, (Reported ) Furosemide (Furosemide), 20 MG PO DAILY PRN for SEE COMMENTS, (Reported) Miscellaneous Medications Aspirin (Aspir 81), 81 MG PO, (Reported) Cetirizine Hcl (Zyrtec), 10 MG PO, (Reported) Discontinued Medications Fluticasone/Salmeterol (Advair 250-50 Diskus), 1 INH IH BID, (Reported) Time Spent Total time spent with patient 10 minutes for coordination of care, counseling, and education. BARB PULIDO MD May 03, 2017 14:18
[2017-05-03 15:07] VITALS: BP 114/87
--- NOTE | 2017-05-03 19:15 | PDOC ---
PROGRESS NOTES Chief Complaint Chief Complaint Post op Umbilical Hernia repair with h/o: Hypertension, obesity, constipation, C-sections, cholecystectomy, prior hernia repair, and hysterectomy. History of Present Illness History of Present Illness Pt seen and examined this am In bed. Nino RN Reviewed labs and notes Pt seems to be at baseline Vitals Vitals Vital Signs Date Time Temp Pulse Resp B/P (MAP) Pulse Ox O2 Delivery O2 Flow Rate FiO2 05/03/17 15:30 Room Air 05/03/17 15:07 97.3 86 18 114/87 (96) 96 97.3 05/03/17 07:00 Physical Exam General: Alert, Oriented X3, Cooperative, No acute distress Heart: Regular rate, Normal S1 Lungs: Clear Abdomen: Soft, Other (dressing dry) Skin: No rashes Labs LABS Laboratory Tests Test 05/02/17 20:53 05/03/17 05:05 05/03/17 08:02 05/03/17 11:06 Glucose (Fingerstick) 134 mg/dL (70-99) 122 mg/dL (70-99) 122 mg/dL (70-99) White Blood Count 9.1 x10^3/uL (4.0-11.0) Red Blood Count 4.69 x10^6/uL (3.50-5.40) Hemoglobin 12.3 g/dL (12.0-15.5) Hematocrit 38.3 % (36.0-47.0) Mean Corpuscular Volume 82 fL (79-100) Mean Corpuscular Hemoglobin 26 pg (25-35) Mean Corpuscular Hemoglobin Concent 32 g/dL (31-37) Red Cell Distribution Width 18.2 % (11.5-14.5) Platelet Count 293 x10^3/uL (140-400) Neutrophils (%) (Auto) 77 % (31-73) Lymphocytes (%) (Auto) 13 % (24-48) Monocytes (%) (Auto) 8 % (0-9) Eosinophils (%) (Auto) 2 % (0-3) Basophils (%) (Auto) 0 % (0-3) Neutrophils # (Auto) 7.0 x10^3uL (1.8-7.7) Lymphocytes # (Auto) 1.2 x10^3/uL (1.0-4.8) Monocytes # (Auto) 0.7 x10^3/uL (0.0-1.1) Eosinophils # (Auto) 0.2 x10^3/uL (0.0-0.7) Basophils # (Auto) 0.0 x10^3/uL (0.0-0.2) Assessment and Plan Assessmemt and Plan Post op Umbilical Hernia repair with h/o: Hypertension, obesity, constipation, C-sections, cholecystectomy, prior hernia repair, and hysterectomy. Plan Ok to dc Fu pcp in 1 week cont home meds wound care Problems: Comment Review of Relevant I have reviewed the following items petra (where applicable) has been applied. Labs Laboratory Tests Test 05/01/17 21:12 05/02/17 04:15 05/02/17 11:22 05/02/17 20:53 Glucose (Fingerstick) 183 mg/dL (70-99) 128 mg/dL (70-99) 134 mg/dL (70-99) White Blood Count 11.7 x10^3/uL (4.0-11.0) Red Blood Count 4.58 x10^6/uL (3.50-5.40) Hemoglobin 11.7 g/dL (12.0-15.5) Hematocrit 37.7 % (36.0-47.0) Mean Corpuscular Volume 82 fL (79-100) Mean Corpuscular Hemoglobin 26 pg (25-35) Mean Corpuscular Hemoglobin Concent 31 g/dL (31-37) Red Cell Distribution Width 18.3 % (11.5-14.5) Platelet Count 279 x10^3/uL (140-400) Neutrophils (%) (Auto) 83 % (31-73) Lymphocytes (%) (Auto) 9 % (24-48) Monocytes (%) (Auto) 8 % (0-9) Eosinophils (%) (Auto) 0 % (0-3) Basophils (%) (Auto) 0 % (0-3) Neutrophils # (Auto) 9.7 x10^3uL (1.8-7.7) Lymphocytes # (Auto) 1.1 x10^3/uL (1.0-4.8) Monocytes # (Auto) 0.9 x10^3/uL (0.0-1.1) Eosinophils # (Auto) 0.0 x10^3/uL (0.0-0.7) Basophils # (Auto) 0.0 x10^3/uL (0.0-0.2) Test 05/03/17 05:05 05/03/17 08:02 05/03/17 11:06 White Blood Count 9.1 x10^3/uL (4.0-11.0) Red Blood Count 4.69 x10^6/uL (3.50-5.40) Hemoglobin 12.3 g/dL (12.0-15.5) Hematocrit 38.3 % (36.0-47.0) Mean Corpuscular Volume 82 fL (79-100) Mean Corpuscular Hemoglobin 26 pg (25-35) Mean Corpuscular Hemoglobin Concent 32 g/dL (31-37) Red Cell Distribution Width 18.2 % (11.5-14.5) Platelet Count 293 x10^3/uL (140-400) Neutrophils (%) (Auto) 77 % (31-73) Lymphocytes (%) (Auto) 13 % (24-48) Monocytes (%) (Auto) 8 % (0-9) Eosinophils (%) (Auto) 2 % (0-3) Basophils (%) (Auto) 0 % (0-3) Neutrophils # (Auto) 7.0 x10^3uL (1.8-7.7) Lymphocytes # (Auto) 1.2 x10^3/uL (1.0-4.8) Monocytes # (Auto) 0.7 x10^3/uL (0.0-1.1) Eosinophils # (Auto) 0.2 x10^3/uL (0.0-0.7) Basophils # (Auto) 0.0 x10^3/uL (0.0-0.2) Glucose (Fingerstick) 122 mg/dL (70-99) 122 mg/dL (70-99) Laboratory Tests Test 05/02/17 20:53 05/03/17 05:05 05/03/17 08:02 05/03/17 11:06 Glucose (Fingerstick) 134 mg/dL (70-99) 122 mg/dL (70-99) 122 mg/dL (70-99) White Blood Count 9.1 x10^3/uL (4.0-11.0) Red Blood Count 4.69 x10^6/uL (3.50-5.40) Hemoglobin 12.3 g/dL (12.0-15.5) Hematocrit 38.3 % (36.0-47.0) Mean Corpuscular Volume 82 fL (79-100) Mean Corpuscular Hemoglobin 26 pg (25-35) Mean Corpuscular Hemoglobin Concent 32 g/dL (31-37) Red Cell Distribution Width 18.2 % (11.5-14.5) Platelet Count 293 x10^3/uL (140-400) Neutrophils (%) (Auto) 77 % (31-73) Lymphocytes (%) (Auto) 13 % (24-48) Monocytes (%) (Auto) 8 % (0-9) Eosinophils (%) (Auto) 2 % (0-3) Basophils (%) (Auto) 0 % (0-3) Neutrophils # (Auto) 7.0 x10^3uL (1.8-7.7) Lymphocytes # (Auto) 1.2 x10^3/uL (1.0-4.8) Monocytes # (Auto) 0.7 x10^3/uL (0.0-1.1) Eosinophils # (Auto) 0.2 x10^3/uL (0.0-0.7) Basophils # (Auto) 0.0 x10^3/uL (0.0-0.2) Medications Current Medications Ondansetron HCl (Zofran) 4 mg PRN Q6HRS PRN IV NAUSEA/VOMITING; Start 05/01/17 at 07:00; Stop 05/02/17 at 06:59; Status DC Fentanyl Citrate (Fentanyl 2ml Vial) 25 mcg PRN Q5MIN PRN IV MILD PAIN Last administered on 05/01/17 09:52; Start 05/01/17 at 07:00; Stop 05/02/17 at 06:59; Status DC Fentanyl Citrate (Fentanyl 2ml Vial) 50 mcg PRN Q5MIN PRN IV MODERATE PAIN; Start 05/01/17 at 07:00; Stop 05/02/17 at 06:59; Status DC Ringer's Solution 1,000 ml @ 30 mls/hr Q24H IV Last administered on 05/01/17 07:00; Start 05/01/17 at 07:00; Stop 05/01/17 at 18:59; Status DC Lidocaine HCl 2 ml PRN 1X PRN ID PRIOR TO IV START; Start 05/01/17 at 07:00; Stop 05/02/17 at 06:59; Status DC Prochlorperazine Edisylate (Compazine) 5 mg PACU PRN PRN IV NAUSEA, MRX1; Start 05/01/17 at 07:00; Stop 05/02/17 at 06:59; Status DC Levofloxacin/ Dextrose 100 ml @ 100 mls/hr 1X PREOP PRN IV PRIOR TO PROCEDURE ; Start 05/01/17 at 06:00; Stop 05/01/17 at 18:00; Status DC Bupivacaine HCl/ Epinephrine Bitart (Sensorcain-Mpf Epi 0.5%-1:[id number]) 30 ml STK -MED ONCE .ROUTE ; Start 05/01/17 at 07:07; Stop 05/01/17 at 07:08; Status DC Bupivacaine HCl (Sensorcaine Mpf 0.5%) 30 ml STK-MED ONCE .ROUTE Last administered on 05/01/17t 08:01; Start 05/01/17 at 07:08; Stop 05/01/17 at 07:09; Status DC Dexamethasone Sodium Phosphate (Decadron) 20 mg STK-MED ONCE .ROUTE ; Start 05/01 at 07:18; Stop 05/01/17 at 07:19; Status DC Ondansetron HCl (Zofran) 4 mg STK-MED ONCE .ROUTE ; Start 05/01/17 at 07:18; Stop 05/01/17 at 07:19; Status DC Propofol 20 ml @ As Directed STK-MED ONCE IV ; Start 05/01/17 at 07:18; Stop 05/01 at 07:19; Status DC Lidocaine HCl (Lidocaine Pf 2% Vial) 5 ml STK-MED ONCE .ROUTE ; Start 05/01/17 at 07:18; Stop 05/01/17 at 07:19; Status DC Rocuronium Hawi (Zemuron) 100 mg STK-MED ONCE .ROUTE ; Start 05/01/17 at 07:19 ; Stop 05/01/17 at 07:20; Status DC Fentanyl Citrate (Fentanyl 5ml Vial) 250 mcg STK-MED ONCE .ROUTE ; Start at 07:20; Stop 05/01/17 at 07:21; Status DC Glycopyrrolate (Robinul) 1 mg STK-MED ONCE .ROUTE ; Start 05/01/17 at 08:09; Stop 05/01/17 at 08:10; Status DC Neostigmine Methylsulfate 5 mg STK-MED ONCE .ROUTE ; Start 05/01/17 at 08:09; Stop 05/01/17 at 08:10; Status DC Fentanyl Citrate (Fentanyl 2ml Vial) 50 mcg PRN Q5MIN PRN IV Acute Pain; Start 05/01/17 at 08:15; Stop 05/02/17 at 08:14; Status DC Morphine Sulfate 4 mg PRN Q10MIN PRN IV Moderate Pain; Start 05/01/17 at 08:15; Stop 05/02/17 at 08:14; Status UNV Hydromorphone HCl (Dilaudid) 0.4 mg PRN Q10MIN PRN IV Moderate to severe pain; Start 05/01/17 at 08:15; Stop 05/02/17 at 08:14; Status UNV Meperidine HCl (Demerol) 12.5 mg PRN Q5MIN PRN IV SHIVERING; Start 05/01/17 at 08:15; Stop 05/02/17 at 08:14; Status DC Prochlorperazine Edisylate (Compazine) 5 mg PRN Q6HRS PRN IV Nausea/Vomiting, 1st Choice; Start 05/01/17 at 08:15; Stop 05/02/17 at 08:14; Status DC Ketorolac Tromethamine (Toradol For Or Only) 60 mg STK-MED ONCE .ROUTE ; Start 05/01/17 at 08:40; Stop 05/01/17 at 08:41; Status DC Enoxaparin Sodium (Lovenox 40mg Syringe) 40 mg BID SQ Last administered on t 09:01; Start 05/01/17 at 21:00; Stop 05/03/17 at 16:41; Status DC Sodium Chloride (Normal Saline Flush) 3 ml QSHIFT PRN IV AFTER MEDS AND BLOOD DRAWS; Start 05/01/17 at 09:45; Stop 05/03/17 at 16:41; Status DC Potassium Chloride/Sodium Chloride 1,000 ml @ 50 mls/hr Q20H IV Last administered on 05/02/17 14:17; Start 05/01/17 at 12:00; Stop 05/03/17 at 16:41; Status DC Docusate Sodium (Colace) 100 mg BID PO Last administered on 05/02/17 21:22; Start 05/01/17 at 21:00; Stop 05/03/17 at 16:41; Status DC Ondansetron HCl (Zofran) 4 mg PRN Q6HRS PRN IV NAUESA, 1ST CHOICE; Start at 09:45; Stop 05/03/17 at 16:41; Status DC Amlodipine Besylate (Norvasc) 10 mg DAILY PO Last administered on 05/03/17 09: 03; Start 05/02/17 at 09:00; Stop 05/03/17 at 16:41; Status DC Aspirin (Ecotrin) 81 mg DAILY PO Last administered on 05/03/17 09:03; Start 05/02/17 at 09:00; Stop 05/03/17 at 16:41; Status DC Atorvastatin Calcium (Lipitor) 40 mg QHS PO Last administered on 05/02/17 21:22 ; Start 05/01/17 at 21:00; Stop 05/03/17 at 16:41; Status DC Cetirizine HCl (ZyrTEC) 10 mg DAILY PO Last administered on 05/03/17 09:03; Start 05/02/17 at 09:00; Stop 05/03/17 at 16:41; Status DC Clonidine HCl (Catapres) 0.2 mg DAILY PO Last administered on 05/03/17 09:03; Start 05/02/17 at 09:00; Stop 05/03/17 at 16:41; Status DC Fluticasone Propionate (Flonase) 2 spray DAILY NS Last administered on 09:03; Start 05/02/17 at 09:00; Stop 05/03/17 at 16:41; Status DC Furosemide (Lasix) 20 mg DAILY PRN PO SEE COMMENTS; Start 05/01/17 at 09:45; Stop 05/03/17 at 16:41; Status DC Metformin HCl (Glucophage Xr) 500 mg DAILYWBKFT PO Last administered on 09:01; Start 05/02/17 at 08:00; Stop 05/03/17 at 16:41; Status DC Metoprolol Succinate (Toprol Xl) 100 mg DAILY PO Last administered on 05/03/17 09:02; Start 05/02/17 at 09:00; Stop 05/03/17 at 16:41; Status DC Albuterol Sulfate (Ventolin Neb Soln) 2.5 mg PRN Q4HRS PRN NEB SHORTNESS OF BREATH; Start 05/01/17 at 10:30; Stop 05/03/17 at 16:41; Status DC Pantoprazole Sodium (Protonix) 40 mg DAILYAC PO Last administered on 05/03/17 09:03; Start 05/02/17 at 07:30; Stop 05/03/17 at 16:41; Status DC Non-Formulary Medication 1 puff BID IH ; Start 05/01/17 at 21:00; Status UNV Losartan Potassium (Cozaar) 100 mg DAILY PO Last administered on 05/03/17 09:02 ; Start 05/02/17 at 09:00; Stop 05/03/17 at 16:41; Status DC Tramadol HCl (Ultram) 50 mg 1X ONCE PO ; Start 05/01/17 at 09:45; Stop 05/01/17 at 09:46; Status Cancel Fentanyl Citrate (Fentanyl 2ml Vial) 50 mcg PRN Q2HR PRN IV PAIN; Start at 09:45; Stop 05/03/17 at 16:41; Status DC Budesonide (Pulmicort) 0.5 mg RTBID NEB Last administered on 05/03/17 07:45; Start 05/01/17 at 20:00; Stop 05/03/17 at 16:41; Status DC Albuterol Sulfate (Ventolin Neb Soln) 2.5 mg RTQID NEB Last administered on 05/03 15:29; Start 05/01/17 at 12:00; Stop 05/03/17 at 16:41; Status DC Sevoflurane (Ultane) 60 ml STK-MED ONCE IH ; Start 05/01/17 at 10:41; Stop at 10:42; Status DC Tramadol HCl (Ultram) 50 mg 1X ONCE PO Last administered on 05/01/17t 21:33; Start 05/01/17 at 20:15; Stop 05/01/17 at 20:16; Status DC Active Scripts Active Amlodipine Besylate 10 Mg Tablet 10 Mg PO DAILY Reported Cinnamon (Cinnamon Bark) 500 Mg Capsule 500 Mg PO DAILY Cranberry 500 Mg Capsule 500 Mg PO DAILY Cozaar (Losartan Potassium) 100 Mg Tablet 100 Mg PO DAILY Advair 250-50 Diskus (Fluticasone/Salmeterol) 1 Each Disk.w.dev 1 Puff IH BID Clonidine Hcl 0.2 Mg Tablet 0.2 Mg PO DAILY Aspir 81 (Aspirin) 81 Mg Tablet.dr 81 Mg PO Nexium Capsule (Esomeprazole Magnesium) 40 Mg Capsule.dr 40 Mg PO DAILYAC Lipitor (Atorvastatin Calcium) 40 Mg Tablet 40 Mg PO DAILY Metoprolol Succinate ( Xl ) (Metoprolol Succinate) 100 Mg Tab.er.24h 100 Mg PO DAILY Metformin Hcl Er (Metformin Hcl) 500 Mg Tab.er.24h 500 Mg PO DAILYWBKFT Ventolin Hfa Inhaler (Albuterol Sulfate) 18 Gm Hfa.aer.ad 2 Puff IH Q4HRS PRN Fluticasone Propionate Nasal [place] (Fluticasone Propionate) 16 Gm [place].susp 2 [place] NS DAILY Zyrtec (Cetirizine Hcl) 10 Mg Tablet 10 Mg PO Furosemide 20 Mg Tablet 20 Mg PO DAILY PRN Vitals/I & O Vital Sign - Last 24 Hours 05/02/17 05/02/17 05/02/17 05/02/17 19:42 19:44 20:00 23:00 Temp 97.7 97.7 Pulse 77 Resp 16 B/P (MAP) 164/99 (120) Pulse Ox 94 94 94 O2 Delivery Room Air Room Air Room Air 05/03/17 05/03/17 05/03/17 05/03/17 03:00 07:00 07:47 07:50 Temp 98.2 98.2 Pulse 90 Resp 18 B/P (MAP) 156/85 (108) Pulse Ox 94 95 95 O2 Delivery Room Air Room Air Room Air O2 Flow Rate 05/03/17 05/03/17 05/03/17 05/03/17 09:02 09:02 09:03 09:03 Pulse 90 90 90 90 B/P (MAP) 156/85 156/85 156/85 156/85 05/03/17 05/03/17 05/03/17 05/03/17 11:09 11:20 15:07 15:30 Temp 98.0 97.3 98.0 97.3 Pulse 82 86 Resp 16 18 B/P (MAP) 134/76 (95) 114/87 (96) Pulse Ox 95 96 O2 Delivery Room Air Room Air Room Air Room Air Intake and Output 05/02/17 05/02/17 05/03/17 15:00 23:00 07:00 Intake Total 500 ml 600 ml Output Total 450 ml Balance 50 ml 600 ml JIAN BHARDWAJ III DO May 03, 2017 19:15
== END 2017-05-03 15:00 | disposition home or self-care (01) | DRG 354 ==
LOC: SURG 05:47 → 5 SOUTH 10:05
PROVIDERS: ADMIT Surgery; ATTEND Surgery
PROC: 0DBS0ZZ (ICD-10-PCS; 2017-05-01)
PROC: 0WUF0JZ Supplement Abdominal Wall with Synthetic Substitute, Open Approach (ICD-10-PCS; principal; 2017-05-01 08:00)
DX: K42.0 Umbilical hernia with obstruction, without gangrene (principal); Z68.41 Body mass index [BMI] 40.0-44.9, adult; E44.0 Moderate protein-calorie malnutrition; E11.9 Type 2 diabetes mellitus without complications; E66.9 Obesity, unspecified; K59.00 Constipation, unspecified; E78.00 Pure hypercholesterolemia, unspecified; I10 Essential (primary) hypertension; J45.909 Unspecified asthma, uncomplicated; Z80.9 Family history of malignant neoplasm, unspecified; Z90.710 Acquired absence of both cervix and uterus; Z90.49 Acquired absence of other specified parts of digestive tract; Z88.5 Allergy status to narcotic agent; Z88.0 Allergy status to penicillin; Z88.2 Allergy status to sulfonamides; Z88.8 Allergy status to other drugs, medicaments and biological substances; Z79.899 Other long term (current) drug therapy; Z79.1 Long term (current) use of non-steroidal anti-inflammatories (NSAID); Z98.891 History of uterine scar from previous surgery
CPT/HCPCS: 36415; 80053; 82962; 85027; 88307; 94250; 94640; 94760; C1769; J1100; J1650; J1885; J1956; J2405; J2704; J2710; J3010; J3490; J7120; 97116; 97530; 97535

== ENCOUNTER → 2017-06-08 | Day surgery (SDC) | payer MEDICARE, OTHER ==
[~2017-06-08] MED LIST changes: +LIDOCAINE 1%/EPI 1:100,000 20 ML VIAL. INJ ONE; +LIDOCAINE 1%/EPI 1:100,000 20 ML VIAL. ONE; +NEOMY/BACITR/POLYMYXIN OINT PACKET. TP ONE
[2017-06-08 09:35] VITALS: BP 133/75
--- NOTE | 2017-06-08 10:38 | PDOC4 ---
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 Here for removal Operative report: The left posterior reticular area was prepped and draped in usual sterile fashion. A marking pen used to outline the an elliptical incision around the skin process. 1% lidocaine with epinephrine was infiltrated for local anesthesia. Skin and subcutaneous process excised intact. Hemostasis with cautery. Wound closed with interrupted 5-0 nylon sutures. Antibiotic ointment and sterile dressing applied. Patient tolerated procedure well and left the outpatient area in stable condition. BARB PULIDO MD Jun 08, 2017 10:38
== END | disposition home or self-care (01) ==
LOC: SURG 08:49
PROVIDERS: ATTEND Surgery
DX: L72.9 Follicular cyst of the skin and subcutaneous tissue, unspecified (principal); E11.9 Type 2 diabetes mellitus without complications; I10 Essential (primary) hypertension; E78.5 Hyperlipidemia, unspecified; E78.00 Pure hypercholesterolemia, unspecified; Z85.41 Personal history of malignant neoplasm of cervix uteri; Z90.710 Acquired absence of both cervix and uterus; Z90.49 Acquired absence of other specified parts of digestive tract; Z83.3 Family history of diabetes mellitus; Z82.49 Family history of ischemic heart disease and other diseases of the circulatory system; Z88.6 Allergy status to analgesic agent; Z88.0 Allergy status to penicillin; Z88.2 Allergy status to sulfonamides; J44.9 Chronic obstructive pulmonary disease, unspecified; J45.909 Unspecified asthma, uncomplicated; Z87.39 Personal history of other diseases of the musculoskeletal system and connective tissue
CPT/HCPCS: 11440; J3490

== ENCOUNTER 2019-08-09 06:23 | Emergency (ER) | payer MEDICARE, OTHER ==
[~2019-08-09] VITALS: Ht 156.2 cm; Wt 107.5 kg
[~2019-08-09 06:23] MED LIST changes: -AMLO10TA2 PO; +AMLO10TA8 PO; -LIDOCAINE 1%/EPI 1:100,000 20 ML VIAL. INJ ONE; -LIDOCAINE 1%/EPI 1:100,000 20 ML VIAL. ONE; +METF500T11 PO; -METF500T9 PO; +METO-247 PO; -METO100T11 PO; -NEOMY/BACITR/POLYMYXIN OINT PACKET. TP ONE
--- NOTE | 2019-08-09 06:56 | PHYS DOC ---
Past Medical History Past Medical History: Asthma, Cancer, Diabetes-Type II, High Cholesterol, Hypertension Additional Past Medical Histor: Cancer of ovary, petic ulcer disease; hernia Past Surgical History: Cholecystectomy, , Hysterectomy, Other Additional Past Surgical Histo: hernia repair Alcohol Use: None Drug Use: None Adult General Chief Complaint Chief Complaint: LOWER EXT PAIN HPI HPI Patient is a 68 year old female who presents via EMS with complaining of falls and injury to knees. Patient states she had an accidental fall in her bathroom last night because of a soft hole on the floor of the bathroom and landed on her left knee with right knee interring to the hole without loss of consciousness or head injury. Patient states this morning she had another fall inside the opening on the bathroom floor and hit her left knee with interring to the hole with left knee and injured her right knee. Patient rated her pain 7 with activity but denies any pain without bearing weight. Last tetanus immunizations unknown. Patient currently taking daily 1 mg of aspirin. Review of Systems Review of Systems Constitutional: Denies fever or chills [] Eyes: Denies change in visual acuity, redness, or eye pain [] HENT: Denies nasal congestion or sore throat [] Respiratory: Denies cough or shortness of breath [] Cardiovascular: No additional information not addressed in HPI [] GI: Denies abdominal pain, nausea, vomiting, bloody stools or diarrhea [] : Denies dysuria or hematuria [] Musculoskeletal: Denies back pain, reports joint pain [] Integument: Denies rash or skin lesions [] Neurologic: Denies headache, focal weakness or sensory changes [] Endocrine: Denies polyuria or polydipsia [] All other systems were reviewed and found to be within normal limits, except as documented in this note. Current Medications Current Medications Current Medications Medications (Trade) Dose Ordered Sig/Jennifer Start Time Stop Time Status Last Admin Dose Admin Diphtheria/ Tetanus/Acell Pertussis (Boostrix) 0.5 ml ONCE ONCE 08/09/19 07:15 08/09/19 07:16 DC 08/09/19 07:16 0.5 ML Allergies Allergies Allergies Coded Allergies Type Severity Reaction Last Updated Verified Sulfa (Sulfonamide Antibiotics) Allergy Severe Anaphylaxis 06/08/17 Yes Penicillins Allergy Intermediate Hives 06/08/17 Yes codeine Allergy Intermediate 06/08/17 Yes diphenhydramine Allergy Intermediate Palpitations 06/08/17 Yes feathers Allergy Intermediate 07/17/17 Yes influenza virus vaccine, specific Allergy Intermediate 07/17/17 Yes Physical Exam Physical Exam Constitutional: Well developed, well nourished, mild distress, non-toxic appe arance, morbidly obese. [] HENT: Normocephalic, atraumatic. Eyes: PERRLA, EOMI, conjunctiva normal, no discharge. [] Neck: Normal range of motion, no tenderness, supple, no stridor. [] Cardiovascular:Heart rate regular rhythm, no murmur [] Lungs & Thorax: Bilateral breath sounds clear to auscultation [] Abdomen: Bowel sounds normal, soft, no tenderness, no masses, no pulsatile m asses. [] Skin: Warm, dry, no erythema, no rash. [] Back: No tenderness, no CVA tenderness. [] Extremities: Large area of contusion and ecchymosis in medial side of right knee notes deformity, application in with left-sided of right lower leg, no neurov ascular deficit, normal range of motion, left knee without deformity or contusion, normal range of motion, no neurovascular deficit. Neurologic: Alert and oriented X 3, no focal deficits noted. [] Psychologic: Affect normal, judgement normal, mood normal. [] Current Patient Data Vital Signs Vital Signs Date Time Temp Pulse Resp B/P (MAP) Pulse Ox O2 Delivery O2 Flow Rate FiO2 08/09/19 07:56 75 18 152/88 (109) 93 08/09/19 06:24 98.0 Room Air 98.0 Lab Values Laboratory Tests Test 08/09/19 07:02 Glucose (Fingerstick) 128 mg/dL (70-99) H EKG EKG [] Radiology/Procedures Radiology/Procedures [facility] [address] [place] [address] IMAGING REPORT Signed PATIENT: LISA ST AACCOUNT: [id number] : 1950 LOCATION: ER AGE: 68 SEX: F EXAM STATUS: REG ER ORD. PHYSICIAN: AIYANA DELANEY MD REASON: fall, DEACON KNEE PAIN PROCEDURE: KNEE BILAT 3V Study: 1. Pelvis radiographs-single view 2. Bilateral knee radiographs 4 views INDICATION: Fall. Hip pain. COMPARISON: None. FINDINGS: Single AP radiograph view of the pelvis. Taking into consideration overlapping soft tissues and osteopenia, no acute fracture is identified. Alignment is maintained across the sacroiliac joints, hips and pubic symphysis. AP, oblique and lateral radiographic views of both knees. No acute fracture seen at either knee. No traumatic malalignment Degenerative changes involving the right knee more so the left with a predominant involvement of the lateral compartment the right knee with areas moderate to severe joint space narrowing with associated genu valgus alignment. Small right knee joint effusion, likely degenerative in etiology. No large effusion seen on the left. Vascular calcifications. IMPRESSION: 1. No acute fracture seen to involve the pelvis, noting that the study is somewhat limited due to overlying soft tissues as well as the presence of osteopenia. Hip alignment is maintained. 2. No acute fracture at either knee. 3. Scattered degenerative changes, most pronounced involving the lateral compartment of the right knee. Electronically signed by: MUSA WILSON MD (08/09/2019 7:14 AM) [facility] DICTATED and SIGNED BY: MUSA WILSON MD DATE: 08/09/19 0714 Course & Med Decision Making Course & Med Decision Making Pertinent Labs and Imaging studies reviewed. (See chart for details) Evaluation of patient in ER showed 68-year-old female patient with fall and injury to bilateral knees contusion of right knee area. Patient did not want to have pain medication in ER and was able to lay without problem. X-ray of knees did not show acute fracture or dislocation. Patient did not want a prescription for pain medication for home. Jose wrap was applied and patient was advised to use home cane and follow up with her primary care physician. Dragon Disclaimer Dragon Disclaimer This electronic medical record was generated, in whole or in part, using a voice recognition dictation system. Departure Departure Impression: Primary Impression: Knee sprain, bilateral Additional Impressions: Knee contusion Fall at home Disposition: HOME, SELF-CARE (at 0 [phone]) Condition: IMPROVED Referrals: SCOTTY STINSON MD (PCP) Patient Instructions: Contusion, Fall Prevention and Home Safety, Knee Sprain Additional Instructions: Apply ice on bilateral knees Follow-up with your primary care physician in 3-5 days Return to ER if not getting better Take [id number] Tylenol as needed for pain Problem Qualifiers Additional Impressions: Knee contusion Encounter type: sequela Laterality: right Qualified Codes: S80.01XS - Contusion of right knee, sequela Fall at home Encounter type: subsequent encounter Qualified Codes: W19.XXXD - Unspecified fall, subsequent encounter; Y92.009 - Unspecified place in unspecified non-institutional (private) residence as the place of occurrence of the external cause AIYANA DELANEY MD Aug 09, 2019 06:56
[2019-08-09] MEDS: DIPHTH,PERTUSS(ACELL),TET TOX 0.5 ML DISP.SYRIN. VAX IM ONE (07:16)
--- NOTE | 2019-08-09 07:17 | RAD ---
Study: 1. Pelvis radiographs-single view 2. Bilateral knee radiographs 4 views INDICATION: Fall. Hip pain. COMPARISON: None. FINDINGS: Single AP radiograph view of the pelvis. Taking into consideration overlapping soft tissues and osteopenia, no acute fracture is identified. Alignment is maintained across the sacroiliac joints, hips and pubic symphysis. AP, oblique and lateral radiographic views of both knees. No acute fracture seen at either knee. No traumatic malalignment Degenerative changes involving the right knee more so the left with a predominant involvement of the lateral compartment the right knee with areas moderate to severe joint space narrowing with associated genu valgus alignment. Small right knee joint effusion, likely degenerative in etiology. No large effusion seen on the left. Vascular calcifications. IMPRESSION: 1. No acute fracture seen to involve the pelvis, noting that the study is somewhat limited due to overlying soft tissues as well as the presence of osteopenia. Hip alignment is maintained. 2. No acute fracture at either knee. 3. Scattered degenerative changes, most pronounced involving the lateral compartment of the right knee. Electronically signed by: MUSA WILSON MD (08/09/2019 7:14 AM) [facility]
[2019-08-09 07:56] VITALS: BP 152/88
== END 2019-08-09 08:05 | disposition home or self-care (01) ==
LOC: ER 06:23
DX: S83.8X2A Sprain of other specified parts of left knee, initial encounter (principal); S83.8X1A Sprain of other specified parts of right knee, initial encounter; J45.909 Unspecified asthma, uncomplicated; E11.9 Type 2 diabetes mellitus without complications; E78.00 Pure hypercholesterolemia, unspecified; Z90.49 Acquired absence of other specified parts of digestive tract; I10 Essential (primary) hypertension; Z90.710 Acquired absence of both cervix and uterus; Z98.890 Other specified postprocedural states; Z88.2 Allergy status to sulfonamides; Z88.0 Allergy status to penicillin; Z88.5 Allergy status to narcotic agent; Z88.8 Allergy status to other drugs, medicaments and biological substances; Z88.7 Allergy status to serum and vaccine; W18.39XA Other fall on same level, initial encounter; Y93.89 Activity, other specified; Y92.002 Bathroom of unspecified non-institutional (private) residence as the place of occurrence of the external cause; Y99.8 Other external cause status
CPT/HCPCS: 72170; 73562; 82962; 90471; 90715; 99285-25